=== PATIENT | male | born 1945 | race Caucasian/White ===

== ENCOUNTER → 2018-07-22 | Outpatient (CLI) | payer MEDICARE, OTHER | END | disposition home or self-care (01) | LOC: LAB SHORT 09:32 → LAB 09:32 | DX: N39.0 Urinary tract infection, site not specified (principal) | CPT/HCPCS: 87077; 87086; 87186 ==

== ENCOUNTER → 2018-11-16 | Outpatient (CLI) | payer MEDICARE, OTHER ==
[2018-11-16 07:42] LABS: Color, Urine Yellow (P-Yellow)
[2018-11-16 07:43] LABS: Appearance, Urine Hazy (Clear); Bilirubin, Urine 1+ (Neg); Blood, Urine 2+ (Neg); Glucose Qualitative, Urine Neg (Normal); Ketones, Urine Neg (Neg); Leukocyte Esterase, Urine 2+ (Neg); Nitrite, Urine Neg (Neg); Protein, Urine Neg (Neg); Urobilinogen, Urine NORM (Normal)
[2018-11-16 07:46] LABS: Bacteria Not Seen /hpf; Red Blood Cells, Urine 50-100 /hpf (0-2); Squamous Epithelial Cells Few /hpf (Few)
== END | disposition home or self-care (01) ==
LOC: LAB EV 07:13
PROVIDERS: Internal Medicine
DX: E11.9 Type 2 diabetes mellitus without complications (principal); R30.0 Dysuria
CPT/HCPCS: 81001; 82043; 87077; 87086; 87186

== ENCOUNTER 2020-08-28 09:47 | Day surgery (SDC) | payer MEDICARE, OTHER ==
[~2020-08-28] VITALS: Ht 188 cm; Wt 139.2 kg
[~2020-08-28 09:47] MED LIST: ASPI81CH; ATEN25; CYCL10 PO; ENAL2.5; EUTHYROX50 MCG; GABA300 PO; GLUCOPHAGE1000 MG PO; HYDCHL25; HYDR1TAB94 PO; OMEP20ER; Prednisone20 MG PO; TAMS.4ER PO
== END 2020-08-28 10:52 | disposition home or self-care (01) ==
LOC: ORSCSDS 09:47
PROVIDERS: Anesthesiology
PROC: 3E0R33Z Introduction of Anti-inflammatory into Spinal Canal, Percutaneous Approach (ICD-10-PCS; principal; 2020-08-28 11:00)
DX: M51.16 Intervertebral disc disorders with radiculopathy, lumbar region (principal); M54.5 Low back pain; I10 Essential (primary) hypertension; E11.9 Type 2 diabetes mellitus without complications; K21.9 Gastro-esophageal reflux disease without esophagitis; E03.9 Hypothyroidism, unspecified; E78.00 Pure hypercholesterolemia, unspecified; E66.9 Obesity, unspecified; Z68.39 Body mass index [BMI] 39.0-39.9, adult; Z79.899 Other long term (current) drug therapy
CPT/HCPCS: 82947; J1040

== ENCOUNTER 2020-09-12 23:06 | Inpatient (IN) | payer MEDICARE, OTHER ==
[~2020-09-12] VITALS: Ht 188 cm; Wt 220.8 kg
[~2020-09-12 23:06] MED LIST changes: +AMAN100 PO; -ASPI81CH; +ATENOLOL25 MG PO; +ATORVASTATIN CA20 MG PO; +Aspirin EC81 MG PO; +CARBIDOPA-LEVO1 EA15 PO; +Enalapril Malea20 MG PO; +FINA5 PO; +METFORMIN HCL500 M3 PO; +NEURONTIN300 MG PO; +SYNTHROID150 MC1 PO
[2020-09-12 23:57] LABS: BASOPHILS ABSOLUTE AUTO 0.01 K/mm3 (0.00-0.23); BASOPHILS PERCENT AUTO 0 % (0-2); EOSINOPHILS ABSOLUTE AUTO 0.01 K/mm3 (0.00-0.68); EOSINOPHILS PERCENT AUTO 0 % (0-6); Hematocrit 39.3 % (37.0-53.0); Hemoglobin 12.8 g/dL (13.5-17.5); IMMATURE GRAN ABSOLUTE AUTO 0.02 K/mm3 (0.00-0.10); IMMATURE GRAN PERCENT AUTO 0 % (0-1); LYMPHOCYTES ABSOLUTE AUTO 0.74 K/mm3 (0.84-5.20); LYMPHOCYTES PERCENT AUTO 16 % (21-46); MONOCYTES ABSOLUTE AUTO 0.41 K/mm3 (0.16-1.47); MONOCYTES PERCENT AUTO 9 % (4-13); Mean Corpuscular HGB 29.6 pg (26.0-34.0); Mean Corpuscular HGB Conc 32.6 g/dL (31.5-36.5); Mean Corpuscular Volume 91 fL (80-100); Mean Platelet Volume 11.8 fL (9.1-12.4); NEUTROPHILS ABSOLUTE AUTO 3.53 K/mm3 (1.96-9.15); NEUTROPHILS PERCENT AUTO 75 % (41-73); Platelet Count 115 K/mm3 (150-400); RDW Coefficient Variation 14.5 % (11.7-14.2); RDW Standard Deviation 48.8 fL (35.1-46.3); Red Blood Cell Count 4.33 M/mm3 (4.30-5.90); White Blood Cell Count 4.72 K/mm3 (4.00-11.30)
[2020-09-13 00:12] LABS: Albumin, Blood 3.1 g/dL (3.4-5.0); Albumin/Globulin Ratio 0.9 (0.8-1.8); Bilirubin, Total 0.6 mg/dL (0.1-1.0); Calcium, Blood 7.8 mg/dL (8.5-10.1); Creatinine, Blood 2.79 mg/dL (0.60-1.20); Globulin, Blood 3.3 g/dL (2.2-4.0); Potassium, Blood 4.5 mmol/L (3.5-5.5); Total Protein, Blood 6.4 g/dL (6.4-8.2); Troponin I 0.045 ng/mL (0.000-0.040)
[2020-09-13 00:14] LABS: International Normalized Ratio 1.02; Prothrombin Time Results 10.9 Sec (9.7-11.5)
[2020-09-13 02:11] LABS: Source, Urine Catheter
[2020-09-13 02:18] LABS: Blood, Urine 4+ (Neg); Glucose Qualitative, Urine Neg (Neg); Ketones, Urine Neg (Neg); Leukocyte Esterase, Urine 1+ (Neg); Nitrite, Urine Neg (Neg); Protein, Urine 2+ (Neg); Urobilinogen, Urine 1+ (Normal)
[2020-09-13 02:23] LABS: Appearance, Urine Clear (Clear); Bilirubin, Urine 1+ (Neg); Color, Urine Amber (P-Yellow)
[2020-09-13 02:31] LABS: Bacteria Mod /hpf; Red Blood Cells, Urine Rare /hpf (0-2); Squamous Epithelial Cells Mod /hpf (Few); White Blood Cells, Urine Rare /hpf (0-5)
--- NOTE | 2020-09-13 05:16 | NUR ---
0410 ADMIT PATIENT FROM ER VIA GURNEY, MAX 2 PERSON PIVOT FROM GURNEY TO BED. DENIES PAIN OR DICOMFORT AT THIS TIME, SEE ADMISSION ASSESSMENT FOR FULL ASSESSMENT. CALL LIGHT TEACHING DONE, CALL FIRST TEACHING, BED IN LOW POSITION WITH ALARM ON.
[2020-09-13 06:23] LABS: BASOPHILS ABSOLUTE AUTO 0.01 K/mm3 (0.00-0.23); BASOPHILS PERCENT AUTO 0 % (0-2); EOSINOPHILS ABSOLUTE AUTO 0.02 K/mm3 (0.00-0.68); EOSINOPHILS PERCENT AUTO 0 % (0-6); Hematocrit 38.6 % (37.0-53.0); Hemoglobin 12.9 g/dL (13.5-17.5); IMMATURE GRAN ABSOLUTE AUTO 0.02 K/mm3 (0.00-0.10); IMMATURE GRAN PERCENT AUTO 0 % (0-1); LYMPHOCYTES ABSOLUTE AUTO 1.07 K/mm3 (0.84-5.20); LYMPHOCYTES PERCENT AUTO 23 % (21-46); MONOCYTES ABSOLUTE AUTO 0.59 K/mm3 (0.16-1.47); MONOCYTES PERCENT AUTO 12 % (4-13); Mean Corpuscular HGB 29.6 pg (26.0-34.0); Mean Corpuscular HGB Conc 33.4 g/dL (31.5-36.5); Mean Corpuscular Volume 89 fL (80-100); Mean Platelet Volume 11.8 fL (9.1-12.4); NEUTROPHILS ABSOLUTE AUTO 3.05 K/mm3 (1.96-9.15); NEUTROPHILS PERCENT AUTO 64 % (41-73); Platelet Count 85 K/mm3 (150-400); RDW Coefficient Variation 14.6 % (11.7-14.2); Red Blood Cell Count 4.36 M/mm3 (4.30-5.90); White Blood Cell Count 4.76 K/mm3 (4.00-11.30)
--- NOTE | 2020-09-13 08:00 | NUR ---
PT LAYING IN BED, A/OX3, A BIT SLOW TO RESPOND, PLEASANT AND COOPERATIVE WITH CARE, FOLLOWS COMMANDS WELL, LUNGS ARE CLEAR IN UPPER SAMPSON, EXP WHEEZE IN BASES, RESP EVEN AND UNLABORED, IS CURRENTLY ON 2 LITERS O2 VIA N/C, NO COUGH NOTED, HRR, TELE IN PLACE RUNNING SR PER MONITOR, SEE STRIP, NO EDEMA NOTED, PPP+1, CAP REFILL <3SEC, VS STABLE, AFEBRILE, IV SITES ARE CLEAR AND PATENT, BTX4, ABD FLAT SOFT NONTENDER, INCONT OF URINE/STOOL, ATTENDS IN PLACE, MAEW, STIFF, SKIN HAS BRUISING TO ABD, DID HAVE A FALL AT HOME, ANA MARIA, CALL LIGHT IN REACH.
[2020-09-13 10:28] LABS: Bun/Creatinine Ratio 27.5 (12.0-20.0); Calcium, Blood 7.9 mg/dL (8.5-10.1); Creatinine, Blood 2.33 mg/dL (0.60-1.20); Potassium, Blood 4.2 mmol/L (3.5-5.5)
--- NOTE | 2020-09-13 18:04 | NUR ---
pt quite pleasant quiet. 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 some redness around scrotum/watson. nystatin applied. changing regularly, heavy wetter. no c/o pain since i took over care at 1500. we talked some about his occupation. no new concerns at this time. bed in low positioin, call lite in reach, calls approp
[2020-09-14 03:52] LABS: BASOPHILS ABSOLUTE AUTO 0.01 K/mm3 (0.00-0.23); BASOPHILS PERCENT AUTO 0 % (0-2); EOSINOPHILS PERCENT AUTO 0 % (0-6); Hematocrit 36.2 % (37.0-53.0); Hemoglobin 12.2 g/dL (13.5-17.5); IMMATURE GRAN ABSOLUTE AUTO 0.02 K/mm3 (0.00-0.10); IMMATURE GRAN PERCENT AUTO 1 % (0-1); LYMPHOCYTES ABSOLUTE AUTO 0.52 K/mm3 (0.84-5.20); LYMPHOCYTES PERCENT AUTO 17 % (21-46); MONOCYTES PERCENT AUTO 10 % (4-13); Mean Corpuscular HGB Conc 33.7 g/dL (31.5-36.5); Mean Corpuscular Volume 89 fL (80-100); Mean Platelet Volume 11.2 fL (9.1-12.4); NEUTROPHILS ABSOLUTE AUTO 2.31 K/mm3 (1.96-9.15); NEUTROPHILS PERCENT AUTO 73 % (41-73); Platelet Count 101 K/mm3 (150-400); RDW Coefficient Variation 14.2 % (11.7-14.2); RDW Standard Deviation 46.4 fL (35.1-46.3); Red Blood Cell Count 4.06 M/mm3 (4.30-5.90); White Blood Cell Count 3.16 K/mm3 (4.00-11.30)
[2020-09-14 04:21] LABS: Alanine Aminotransfer (ALT/SGP 28 U/L (12-78); Albumin, Blood 2.5 g/dL (3.4-5.0); Albumin/Globulin Ratio 0.8 (0.8-1.8); Alk Phos 99 U/L (50-136); Anion Gap 5 mmol/L (6-16); Aspartate Aminotrans (AST/SGOT 138 U/L (12-37); Bilirubin, Total 0.5 mg/dL (0.1-1.0); Blood Urea Nitrogen 40 mg/dL (8-24); Bun/Creatinine Ratio 35.7 (12.0-20.0); CO2, Blood 22 mmol/L (21-32); Calcium, Blood 7.8 mg/dL (8.5-10.1); Chloride, Blood 112 mmol/L (98-108); Creatinine, Blood 1.12 mg/dL (0.60-1.20); Globulin, Blood 3.3 g/dL (2.2-4.0); Glomerular Filtration Rate >60 (60-); Glucose, Blood 173 mg/dL (70-99); Potassium, Blood 4.6 mmol/L (3.5-5.5); Sodium, Blood 139 mmol/L (136-145); Total Protein, Blood 5.8 g/dL (6.4-8.2)
--- NOTE | 2020-09-14 05:37 | NUR ---
SHIFT SUMMARY PT ALERT AND ORIENTED X 4. FORGETFUL AT TIMES. NEEDS REMINDING ON HOW TO USE CALL LIGHT. PT ABLE TO ASSIST IN Q 2 TURNS. PT INCONTINENT AT TIMES, DEPENDS IN PLACE. OXYGEN SATURATION MAINTAINED ABOVE 92% ON 2 L OF OXYGEN VIA NC. HR STABLE. BP STABLE. NO CP OR PRESURE REPORTED. WILL CONTINUE TO MONITOR UNTIL REPORT GIVEN TO NORBERTO BIGGS.
[2020-09-15] MEDS ORDERED: Enalapril Malea20 MG PO (18:32)
[2020-09-15] MEDS ORDERED: HYDCHL25 PO (18:32)
[2020-09-15] MEDS ORDERED: ATEN25 PO (18:33)
[2020-09-15] MEDS ORDERED: METF500 PO (18:33)
[2020-09-15] MEDS ORDERED: OMEP20ER PO (18:34)
== END 2020-09-14 13:33 | disposition home health service (06) | DRG 177 ==
LOC: ER 23:06 → PCU 09-13 04:15
PROVIDERS: Emergency Medicine; Internal Medicine; ADMIT Family Medicine
DX: U07.1 COVID-19 (principal); J12.9 Viral pneumonia, unspecified; N17.9 Acute kidney failure, unspecified; Z66 Do not resuscitate; Z23 Encounter for immunization; Z79.82 Long term (current) use of aspirin; Z79.84 Long term (current) use of oral hypoglycemic drugs; F17.210 Nicotine dependence, cigarettes, uncomplicated; E66.9 Obesity, unspecified; G20 Parkinson's disease; E78.5 Hyperlipidemia, unspecified; I95.9 Hypotension, unspecified; M79.2 Neuralgia and neuritis, unspecified; D69.6 Thrombocytopenia, unspecified; W18.30XA Fall on same level, unspecified, initial encounter; Y93.9 Activity, unspecified; Y92.009 Unspecified place in unspecified non-institutional (private) residence as the place of occurrence of the external cause; N40.0 Benign prostatic hyperplasia without lower urinary tract symptoms; N18.30 Chronic kidney disease, stage 3 unspecified; E11.22 Type 2 diabetes mellitus with diabetic chronic kidney disease; I12.9 Hypertensive chronic kidney disease with stage 1 through stage 4 chronic kidney disease, or unspecified chronic kidney disease; Z68.39 Body mass index [BMI] 39.0-39.9, adult
CPT/HCPCS: 36415; 71045; 76770; 80048; 80053; 81001; 82947; 83605; 84145; 84484; 85025; 85610; 85730; 87040; 87086; 93005; 93010; 94644; 96360; 97162; 97530; 99285-25; A9270-GY; G0008; J0696; J1100; J1644; J7030; Q2038

== ENCOUNTER 2020-09-15 17:29 | Inpatient (IN) | payer MEDICARE, OTHER ==
[~2020-09-15] VITALS: Ht 188 cm; Wt 117.9 kg
[2020-09-15 18:30] LABS: BASOPHILS PERCENT AUTO 0 % (0-2); EOSINOPHILS ABSOLUTE AUTO 0.01 K/mm3 (0.00-0.68); EOSINOPHILS PERCENT AUTO 0 % (0-6); Hematocrit 37.1 % (37.0-53.0); Hemoglobin 12.4 g/dL (13.5-17.5); IMMATURE GRAN ABSOLUTE AUTO 0.03 K/mm3 (0.00-0.10); IMMATURE GRAN PERCENT AUTO 1 % (0-1); LYMPHOCYTES ABSOLUTE AUTO 0.55 K/mm3 (0.84-5.20); LYMPHOCYTES PERCENT AUTO 12 % (21-46); MONOCYTES ABSOLUTE AUTO 0.21 K/mm3 (0.16-1.47); MONOCYTES PERCENT AUTO 5 % (4-13); Mean Corpuscular HGB 29.2 pg (26.0-34.0); Mean Corpuscular HGB Conc 33.4 g/dL (31.5-36.5); Mean Corpuscular Volume 88 fL (80-100); Mean Platelet Volume 11.4 fL (9.1-12.4); NEUTROPHILS PERCENT AUTO 83 % (41-73); Platelet Count 97 K/mm3 (150-400); RDW Coefficient Variation 13.8 % (11.7-14.2); RDW Standard Deviation 44.6 fL (35.1-46.3); Red Blood Cell Count 4.24 M/mm3 (4.30-5.90)
[2020-09-15] MEDS ORDERED: Enalapril Malea20 MG PO (18:32)
[2020-09-15] MEDS ORDERED: HYDCHL25 PO (18:32)
[2020-09-15] MEDS ORDERED: METF500 PO (18:33)
[2020-09-15] MEDS ORDERED: ATEN25 PO (18:33)
[2020-09-15] MEDS ORDERED: OMEP20ER PO (18:34)
[2020-09-15 18:44] LABS: Magnesium, Blood 1.8 mg/dL (1.6-2.4); Troponin I 0.043 ng/mL (0.000-0.040)
[2020-09-15 18:45] LABS: Alanine Aminotransfer (ALT/SGP 86 U/L (12-78); Albumin, Blood 2.8 g/dL (3.4-5.0); Albumin/Globulin Ratio 0.8 (0.8-1.8); Alk Phos 111 U/L (50-136); Anion Gap 5 mmol/L (6-16); Aspartate Aminotrans (AST/SGOT 155 U/L (12-37); Bilirubin, Total 0.8 mg/dL (0.1-1.0); Blood Urea Nitrogen 31 mg/dL (8-24); Bun/Creatinine Ratio 32.1 (12.0-20.0); CO2, Blood 24 mmol/L (21-32); Calcium, Blood 8.2 mg/dL (8.5-10.1); Chloride, Blood 110 mmol/L (98-108); Creatinine, Blood 0.97 mg/dL (0.60-1.20); Globulin, Blood 3.5 g/dL (2.2-4.0); Glomerular Filtration Rate >60 (60-); Glucose, Blood 131 mg/dL (70-99); Potassium, Blood 4.3 mmol/L (3.5-5.5); Sodium, Blood 139 mmol/L (136-145); Total Protein, Blood 6.3 g/dL (6.4-8.2)
--- NOTE | 2020-09-15 22:05 | NUR ---
RECEIVED REPORT FROM DIAN SIERRA. PT ARRIVED TO RM 312 VIA GURNEY. PT TRANSFERRED TO BED WITH 2PA, SHUFFLING GAIT. INCONTINENT OF URINE AT THIS TIME, CONDOM CATH PLACED, NOTED YELLOW URINE. WILL MONITOR AND PROVIDE CARE T/O SHIFT. CALL LT IN REACH.
[2020-09-16 02:11] LABS: BASOPHILS PERCENT AUTO 0 % (0-2); EOSINOPHILS PERCENT AUTO 0 % (0-6); Hematocrit 35.5 % (37.0-53.0); Hemoglobin 11.9 g/dL (13.5-17.5); IMMATURE GRAN ABSOLUTE AUTO 0.03 K/mm3 (0.00-0.10); IMMATURE GRAN PERCENT AUTO 1 % (0-1); LYMPHOCYTES ABSOLUTE AUTO 0.21 K/mm3 (0.84-5.20); LYMPHOCYTES PERCENT AUTO 5 % (21-46); MONOCYTES ABSOLUTE AUTO 0.14 K/mm3 (0.16-1.47); MONOCYTES PERCENT AUTO 4 % (4-13); Mean Corpuscular HGB 29.5 pg (26.0-34.0); Mean Corpuscular HGB Conc 33.5 g/dL (31.5-36.5); Mean Corpuscular Volume 88 fL (80-100); Mean Platelet Volume 11.1 fL (9.1-12.4); NEUTROPHILS ABSOLUTE AUTO 3.65 K/mm3 (1.96-9.15); NEUTROPHILS PERCENT AUTO 91 % (41-73); Platelet Count 107 K/mm3 (150-400); RDW Coefficient Variation 13.9 % (11.7-14.2); RDW Standard Deviation 44.7 fL (35.1-46.3); Red Blood Cell Count 4.04 M/mm3 (4.30-5.90); White Blood Cell Count 4.03 K/mm3 (4.00-11.30)
[2020-09-16 02:40] LABS: Alanine Aminotransfer (ALT/SGP 82 U/L (12-78); Albumin, Blood 2.7 g/dL (3.4-5.0); Albumin/Globulin Ratio 0.8 (0.8-1.8); Alk Phos 100 U/L (50-136); Anion Gap 4 mmol/L (6-16); Aspartate Aminotrans (AST/SGOT 129 U/L (12-37); Bilirubin, Total 0.7 mg/dL (0.1-1.0); Blood Urea Nitrogen 27 mg/dL (8-24); Bun/Creatinine Ratio 30.9 (12.0-20.0); CO2, Blood 25 mmol/L (21-32); Chloride, Blood 107 mmol/L (98-108); Creatinine, Blood 0.87 mg/dL (0.60-1.20); Globulin, Blood 3.4 g/dL (2.2-4.0); Glomerular Filtration Rate >60 (60-); Glucose, Blood 305 mg/dL (70-99); Sodium, Blood 136 mmol/L (136-145); Total Protein, Blood 6.1 g/dL (6.4-8.2)
--- NOTE | 2020-09-16 04:37 | NUR ---
SHIFT SUMMARY: ER ADMIT AT 2213. ALERT AND ORIENTED, FORGETFUL AT TIMES. ON 4L VIA NC, BASELINE RA. MEDICATED ONCE FOR CHRONIC BACK AND SHOULDER PAIN WITH GOOD RELIEF PER PT. TAKES MEDS WHOLE WITH WATER WITHOUT DIFFICULTY. ONEIDA. LUNG SOUNDS WHEEZY WITH AUDIBLE WHEEZES. INCONTINENT OF URINE AT THIS TIME. USES FWW AT BASELINE, THIS ADMIT WEAK D/T ILLNESS. RECEIVED FIRST DOSE OF REMDESIVIR AND DECADRON DURING SHIFT. WILL CONTINUE TO MONITOR AND PROVIDE CARE UNTIL SHIFT REPORT.
--- NOTE | 2020-09-16 11:15 | NUR ---
DAUGHTER WENDI [phone], STATES PATIENT HAD FREQUENT FALLS AT HOME. GIRLFRIEND UNABLE TO PROVIDE SUPPORT FOR PT, WHO DTR AND GF STATES IS DECONDITIONED FROM BASELINE. PT GF, PRAMOD, IS ALSO COVID +
--- NOTE | 2020-09-17 03:57 | NUR ---
SHIFT SUMMARY ADMITTED FOR FEVER/O2 DESATURATION. COVID POSITIVE. DNR CODE. PLAN WILL BE TO DC HOME WHEN MEDICALLY STABLE. RECENT HX OF MULTIPLE ADMIT/ER VISITS, SIGNIFICANT OTHER IS NOT WILLING TO TAKE HIM HOME TOO SOON A RESULT. HE IS ON RA AT HOME, 3 LPM O2 HERE. HX OF RECENT FALLS, DM2 CONTROLLED BY DIET. HE IS INCONTINENT, CONDOM CATH IN PLACE. SIGNIFICANT OTHER INFORMS ME THAT HE CAN BE VERY FORGETFUL. VS ARE STABLE, HE DENIED PAIN THIS SHIFT
[2020-09-17 05:02] LABS: BASOPHILS ABSOLUTE AUTO 0.01 K/mm3 (0.00-0.23); BASOPHILS PERCENT AUTO 0 % (0-2); EOSINOPHILS PERCENT AUTO 0 % (0-6); Hematocrit 37.5 % (37.0-53.0); Hemoglobin 12.5 g/dL (13.5-17.5); IMMATURE GRAN ABSOLUTE AUTO 0.06 K/mm3 (0.00-0.10); IMMATURE GRAN PERCENT AUTO 1 % (0-1); LYMPHOCYTES ABSOLUTE AUTO 0.52 K/mm3 (0.84-5.20); LYMPHOCYTES PERCENT AUTO 9 % (21-46); MONOCYTES ABSOLUTE AUTO 0.44 K/mm3 (0.16-1.47); MONOCYTES PERCENT AUTO 8 % (4-13); Mean Corpuscular HGB 29.3 pg (26.0-34.0); Mean Corpuscular HGB Conc 33.3 g/dL (31.5-36.5); Mean Corpuscular Volume 88 fL (80-100); Mean Platelet Volume 10.8 fL (9.1-12.4); NEUTROPHILS ABSOLUTE AUTO 4.72 K/mm3 (1.96-9.15); NEUTROPHILS PERCENT AUTO 82 % (41-73); Platelet Count 103 K/mm3 (150-400); RDW Coefficient Variation 13.3 % (11.7-14.2); Red Blood Cell Count 4.26 M/mm3 (4.30-5.90); White Blood Cell Count 5.75 K/mm3 (4.00-11.30)
--- NOTE | 2020-09-17 17:32 | NUR ---
SUMMARY PT SITTING UP IN THE RECLINER AT THE BEDSIDE WATCHING TV, PT HAS BEEN PLEASANT AND COOPERATIVE WITH CARE T/O THE DAY, VERY WHEEZY AND SOB AT THE START OF THE SHIFT, WHEEZING HAS SLOWLY IMPROVED T/O THE DAY, PT WAS A 2 P ASSIST UP TO THE RECLINER, PT WAITING TO WATCH A FOOTBALL GAME, PT HAS HAD SEVERAL PHONE CALLS FROM FRIENDS AND FAMILY, PT REMAINS ON 2-3 L OXYGEN, VSS, WILL CONT TO MONITOR
--- NOTE | 2020-09-18 05:40 | NUR ---
PT weaned to 2 l nc oxygen from 3 l . 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 HAs Parkinsons disease & hx of multiple falls at home. Up to chair for several hours & up again to chair this AM for short time. PT recieved IV tx for covid 19. Had repeat chest xray yesterday which showed worsening image. Audible crackles lung bases. PT has a condom cath which did not stay on encouraged urinal use & offered assist but PT was incontient on floor x 1 & used urinal in bed x 1 & spilled. CO gen pain when asked norco 5/325 mg tab x 1 helpful to decrease.
--- NOTE | 2020-09-18 17:37 | NUR ---
SHIFT SUMMARY PATIENT ALERT TO SELF, LOCATION, AND SITUATION THIS SHIFT. PATIENT IS COOPERATIVE WITH CARE. PATIENT ON 2L O2 THIS SHIFT, WHICH IS HIS HOME USAGE. PATIENT IS A 2 PERSON TRANSFER TO THE BEDSIDE CHAIR, WHERE THE PATIENT HAS BEEN SITTING SINCE BREAKFAST. PATIENT STANDS FOR ATTENDS CHANGES DUE TO INCONTENENCE. PATIENT USES FWW AND REQUIRES SOME GUIDANCE AND MINOR BALANCE ASSISTANCE. PATIENT STATES THAT HE DOESN'T KNOW WHAT ALL HIS MEDICATIONS ARE FOR, EDUCATION PROVIDED. PATIENT IS CURRENTLY SITTING UP IN THE CHAIR WATCHING TELEVISION.
[2020-09-19 05:45] LABS: Hematocrit 40.5 % (37.0-53.0); Hemoglobin 13.2 g/dL (13.5-17.5); Mean Corpuscular HGB 28.8 pg (26.0-34.0); Mean Corpuscular HGB Conc 32.6 g/dL (31.5-36.5); Mean Corpuscular Volume 88 fL (80-100); Mean Platelet Volume 10.6 fL (9.1-12.4); Platelet Count 138 K/mm3 (150-400); RDW Coefficient Variation 13.4 % (11.7-14.2); RDW Standard Deviation 43.6 fL (35.1-46.3); Red Blood Cell Count 4.59 M/mm3 (4.30-5.90); White Blood Cell Count 5.08 K/mm3 (4.00-11.30)
[2020-09-19 06:05] LABS: Alanine Aminotransfer (ALT/SGP 37 U/L (12-78); Albumin, Blood 2.6 g/dL (3.4-5.0); Albumin/Globulin Ratio 0.7 (0.8-1.8); Alk Phos 104 U/L (50-136); Anion Gap 3 mmol/L (6-16); Aspartate Aminotrans (AST/SGOT 48 U/L (12-37); Bilirubin, Total 0.9 mg/dL (0.1-1.0); Blood Urea Nitrogen 21 mg/dL (8-24); Bun/Creatinine Ratio 22.5 (12.0-20.0); CO2, Blood 31 mmol/L (21-32); Calcium, Blood 8.4 mg/dL (8.5-10.1); Chloride, Blood 105 mmol/L (98-108); Creatinine, Blood 0.93 mg/dL (0.60-1.20); Globulin, Blood 3.6 g/dL (2.2-4.0); Glomerular Filtration Rate >60 (60-); Glucose, Blood 105 mg/dL (70-99); Potassium, Blood 4.2 mmol/L (3.5-5.5); Sodium, Blood 139 mmol/L (136-145); Total Protein, Blood 6.2 g/dL (6.4-8.2)
--- NOTE | 2020-09-19 06:19 | NUR ---
SHIFT SUMMARY PATIENT ALERT AND ORIENTED. LUNG SOUNDS STILL HAVE EXPIRATORY WHEEZES, BUT PATIENT HAS NOW BEEN TITRATED OFF OF OXYGEN AND IS SATING AT 94% ON ROOM AIR. PATIENT HAD NO COMPLAINTS OF PAIN AND HAD MINIMAL SHORTNESS OF BREATH. IV PATENT AND FLUSHED. BED IN LOWEST POSITION WITH WHEELS LOCKED AND ALARM ON. CALL LIGHT WITHIN REACH. REPORT GIVEN TO ONCOMING RN.
--- NOTE | 2020-09-19 17:27 | NUR ---
SHIFT SUMMARY PATIENT ALERT AND ORIENTED THROUGHOUT THIS SHIFT. PATIENT IS OCCASIONALLY FORGETFUL. PATIENT HAS BEEN SITTING UP IN THE BEDSIDE CHAIR THROUGHOUT THIS SHIFT. PATIENT WORKED WITH PT/OT THIS SHIFT. PATIENT SHOWERED WITH THE ASSISTANCE OF THE EMT THIS SHIFT. PATIENT TOOK A NAP THROUGH MUCH OF THE AFTERNOON. PATIENT CURRENTLY SITTING IN THE CHAIR EATING DINNER.
--- NOTE | 2020-09-20 05:35 | NUR ---
SHIFT SUMMARY PATIENT ALERT AND ORIENTED. HAD NO COMPLAINTS OF PAIN OR SHORTNESS OF BREATH. PATIENT'S O2 SATS WERE STRUGGLING TO STAY AT 90 THIS MORNING, SO PATIENT WAS PLACED BACK ON 1 LITER O2 VIA NASAL CANULA AND HIS SATS INCREASED TO 93. IV PATENT AND FLUSHED. BED IN LOWEST POSITION WITH WHEELS LOCKED AND ALARM ON. CALL LIGHT WITHIN REACH. REPORT GIVEN TO ONCOMING RN.
--- NOTE | 2020-09-20 17:45 | NUR ---
SHIFT SUMMARY PATIENT ALERT AND ORIENTED THIS SHIFT. PATIENT COOPERATIVE WITH CARE. PATIENT HAS PREFERED TO SIT UP IN THE BEDSIDE CHAIR THROUGHOUT THIS SHIFT. PATIENT WORKED WITH PT THIS AM. PATIENT REMAINS WEAK AND IS A HEAVY 1-2 PERSON ASSIST FOR STANDING AND TRANSFERS. PATIENT HAS BEEN INCONTENENT OF URINE MULTIPLE TIMES THIS SHIFT. PATIENT SLEPT SITTING UP IN THE CHAIR MUCH OF THE AFTERNOON. PATIENT CURRENTLY EATING DINNER.
--- NOTE | 2020-09-21 06:05 | NUR ---
SHIFT SUMMARY PATIENT ALERT AND ORIENTED. HAD NO COMPLAINTS OF SHORTNESS OF BREATH, WAS HAVING MUSCLE ACHES TOWARDS THE END OF THE NIGHT. PATIENT REMAINED ON ROOM AIR OVERNIGHT AND O2 SATS HELD STABLE AT 92%. IV PATENT AND FLUSHED. BED IN LOWEST POSITION WITH WHEELS LOCKED. CALL LIGHT WITHIN REACH. REPORT GIVEN TO ONCOMING RN.
--- NOTE | 2020-09-21 18:08 | NUR ---
SHIFT SUMMARY: NO ACUE CHANGES/EVENTS TO REPORT THIS SHIFT. PT A&O; CALM AND COOPERATIVE WITH CARE. NO C/O PAIN/NAUSEA. PATIENT REMAINS MEDICALLY STABLE FOR D/C; RECOMMENDING SNF; PT IS COVID POSITIVE; SNF UNABLE TO ACCEPT PATIENT AT THIS TIME. WCTM.
--- NOTE | 2020-09-22 05:48 | NUR ---
SHIFT SUMMARY NO ACUTE CHANGES THIS SHIFT. AOX4. SLOW TO RESPOND TO QUESTIONS. FOLLOWS DIRECTIONS. HX PARKINSONS. VSS. DENIES DYSPNEA @REST. E/U RESPIRATIONS. SPO2 >90% ON RA. LUNGS SOUND DIMINISHED T/O. CBG 201 @HS. PT TRANSFERS c 2 ASSIST, GAIT BELT & FWW. HAS UNSTEADY, STIFF, SHUFFLING GAIT. INCONT/CONTINENT OF URINE. CALL LIGHT IN REACH & PT ABLE TO MAKE NEEDS KNOWN.
--- NOTE | 2020-09-22 10:05 | NUR ---
AM ASSESSMENT PT UP IN RECLINER. HE IS A/O X2, FORGETFUL, APPEARS FATIGUED. APPEARS SOMEWHAT SOB, R/R APPROX 24-28, BIOX 88-90% RA, PLACED ON 2L N/C BIOX IMPROVE TO 93-94% BLOOD SUGAR LOW @ 55, OJ & BF PROVIDED HOWEVER PT STATE NO APPETITE, DRANK OJ TOOK AM MEDS. BLOOD SUGAR RECHECK 58, DR SAMUEL NOTIFIED ORDER D50 25ML, BLOOD SUGAR UP @ 209. LUNGS ARE DECREASED w FAINT WHEEZE, INTERMITTANT COARSE FISH CULTURIST COUGH. EXTREMITIES COOL, WARM BLANKETS PROVIDED.
[2020-09-22 14:36] LABS: BASOPHILS ABSOLUTE AUTO 0.02 K/mm3 (0.00-0.23); BASOPHILS PERCENT AUTO 0 % (0-2); EOSINOPHILS ABSOLUTE AUTO 0.04 K/mm3 (0.00-0.68); EOSINOPHILS PERCENT AUTO 1 % (0-6); Hematocrit 37.4 % (37.0-53.0); Hemoglobin 12.6 g/dL (13.5-17.5); IMMATURE GRAN ABSOLUTE AUTO 0.19 K/mm3 (0.00-0.10); IMMATURE GRAN PERCENT AUTO 3 % (0-1); LYMPHOCYTES ABSOLUTE AUTO 0.32 K/mm3 (0.84-5.20); LYMPHOCYTES PERCENT AUTO 4 % (21-46); MONOCYTES ABSOLUTE AUTO 0.32 K/mm3 (0.16-1.47); MONOCYTES PERCENT AUTO 4 % (4-13); Mean Corpuscular HGB 29.3 pg (26.0-34.0); Mean Corpuscular HGB Conc 33.7 g/dL (31.5-36.5); Mean Corpuscular Volume 87 fL (80-100); Mean Platelet Volume 10.2 fL (9.1-12.4); NEUTROPHILS ABSOLUTE AUTO 6.59 K/mm3 (1.96-9.15); NEUTROPHILS PERCENT AUTO 88 % (41-73); Platelet Count 177 K/mm3 (150-400); RDW Coefficient Variation 13.4 % (11.7-14.2); RDW Standard Deviation 42.6 fL (35.1-46.3); White Blood Cell Count 7.48 K/mm3 (4.00-11.30)
[2020-09-22 15:07] LABS: Anion Gap 8 mmol/L (6-16); Blood Urea Nitrogen 23 mg/dL (8-24); Bun/Creatinine Ratio 24.1 (12.0-20.0); CO2, Blood 23 mmol/L (21-32); Calcium, Blood 8.2 mg/dL (8.5-10.1); Chloride, Blood 101 mmol/L (98-108); Creatinine, Blood 0.96 mg/dL (0.60-1.20); Glomerular Filtration Rate >60 (60-); Glucose, Blood 286 mg/dL (70-99); Potassium, Blood 4.5 mmol/L (3.5-5.5); Sodium, Blood 132 mmol/L (136-145)
--- NOTE | 2020-09-22 16:29 | NUR ---
SUMMARY THIS AM PT HAD MALAISE, LOW BLOOD SUGAR, LOW GRADE TEMP 100.3, FLUSHED, BACK RED/WARM, EXTREMITIES COOL. HE WAS SHORT OF BREATH w R/R APPROX 28, MOUTH BREATHING, BIOX 88-90% RA, PLACED ON O2 @ 2L. HE STATE NO APPETITE, DR SAMUEL ORDER GLUCERNA WHICH PT HAS TOLERATED. WE GAVE 25ML D50 TO GET BLOOD SUGAR UP. SYMPTOMS HAVE IMPROVED DAY PROGRESSED. VSS/AFEBRILE @ THIS TIME. MENTATION HAS IMPROVED. HE CONTINUES WEAK/FATIGUED HOWEVER BETTER THAN THIS AM. HE PARTICIPATED w PHYTHER, WAS ABLE TO AMBULATE SHORT DISTANCE w ASSIST/FWW, CUEING. HAS BEEN UP IN RECLINER MUCH OF DAY. NO BM X MULT DAYS, SCHEDULED BOWEL MEDS GIVEN, PT STATE THIS IS NOT UNUSUAL FOR HIM & DOES NOT FEEL CONSTIPATED, DENIES NEED FOR LAXATIVE. DR SAMUEL STATE OPTIMAL PLAN FOR HIM WOULD BE SNF WHEN APPROP, POSSIBLY HOME w H/H & CAREGIVERS.
--- NOTE | 2020-09-23 05:49 | NUR ---
SHIFT SUMMARY NO ACUTE CHANGES THIS SHIFT. AOX3, FORGETFUL OF MONTH BUT ABLE TO STATE YR CORRECTLY. SLOW TO RESPOND. FOLLOWS DIRECTIONS. VSS, AFEBRILE. DENIES PAIN, N/V, DYSPNEA. SPO2 >90% ON RA T/O NIGHT. LUNGS SOUND DIM c EXP WHEEZES. CBG @HS WAS 221. 2 ASSIST c GAIT BELT & FWW c TRANSFERS FOR WEAK, STIFF GAIT. CALL LIGHT IN REACH & PT ABLE TO MAKE NEEDS KNOWN. WCTM.
--- NOTE | 2020-09-23 13:43 | NUR ---
Palliative Care Case Conference Note Due to department's COVID-19 visiting restrictions this RN did not visit with Pt. Spoke with Pt's bedside RN Dominic and discussed case. Dominic reports Pt has improved from yesterday. Appetite still decreased. Reviewed chart including MD notes, CM notes, PT notes, and Labs. Called and spoke with Pt's spouse Kasandra. Provided update and engaged in therapeutic listening as Kasandra reports having difficulty with caring for Pt in current functional status. Listened as Kasandra reports not wanting Pt to go to SNF and inability to afford 24 hour caregiving. Continued therapeutic listening and answered questions. Provided gentle education on disease process including trajectory of Parkinson's Disease. Educated on the importance of planning for the future as disease process takes its coarse including the possible need of placing Pt into a higher level of care at some point. Kasandra reports Pt would not want to go to a higher level of care and she plans to keep him at home. Listened as Kasandra reports Pt's PCP started him on a different Parkinson's medication and stopped his original medication. Kasandra stated the new medication was helping Pt with his functional status. Kasandra reports Pt was started on Sinemet three times a day and his symmetrel was discontinued. Kasandra requests to speak with Anderson in regards to D/C plan. Kasandra expresses appreciation of call and reports no other concerns at this time. Called and spoke with Anderson Huerta, discussed case, and relayed Juan Alberto request for a phone conversation. Called and spoke with Dr Cochran. Relayed spouse's concerns regarding medications. Palliative Care will remain available.
--- NOTE | 2020-09-23 16:54 | NUR ---
SUMMARY PT HAS BEEN A/O X3, SOMEWHAT FORGETFUL R/T DATE HOWEVER RERIENTS EASILY. MENTATION MUCH IMPROVED FROM PREVIOUS MORNING. HX PARKINSONS HOWEVER TODAY MINIMAL BUE TREMOR. HIS OVERALL STRENGTH HAS IMPROVED FROM PREVIOUS DAY. HE WAS UP THIS AFTERNOON w PHYTHER, AMB IN ROOM w FWW, THERAPY REPORT IMPROVED GAIT & STAMINA. PLEASANT AFFECT TODAY. HE STATE NO SOB @ REST, NO COUGH. LUNGS DECREASED w FAINT EXP WHEEZE, BIOX 94% RA. APPETITE HAS IMPROVED SOMEWHAT, ALSO TAKING GLUCERNA. DR JULES ESPINAL, STATE POSSIBLE D/C TOMORROW, HOME w H/H & CAREGIVERS. VSS
[2020-09-24 06:00] LABS: Hematocrit 36.3 % (37.0-53.0); Hemoglobin 12.1 g/dL (13.5-17.5); Mean Corpuscular HGB 29.2 pg (26.0-34.0); Mean Corpuscular HGB Conc 33.3 g/dL (31.5-36.5); Mean Corpuscular Volume 88 fL (80-100); Mean Platelet Volume 10.3 fL (9.1-12.4); Platelet Count 200 K/mm3 (150-400); RDW Coefficient Variation 13.3 % (11.7-14.2); RDW Standard Deviation 42.6 fL (35.1-46.3); Red Blood Cell Count 4.14 M/mm3 (4.30-5.90); White Blood Cell Count 6.06 K/mm3 (4.00-11.30)
[2020-09-24 06:19] LABS: Albumin, Blood 2.2 g/dL (3.4-5.0); Anion Gap 4 mmol/L (6-16); Blood Urea Nitrogen 26 mg/dL (8-24); Bun/Creatinine Ratio 33.2 (12.0-20.0); CO2, Blood 27 mmol/L (21-32); Calcium, Blood 8.4 mg/dL (8.5-10.1); Chloride, Blood 106 mmol/L (98-108); Creatinine, Blood 0.78 mg/dL (0.60-1.20); Glomerular Filtration Rate >60 (60-); Glucose, Blood 166 mg/dL (70-99); Phosphorus, Blood 3.2 mg/dL (2.5-4.9); Potassium, Blood 4.2 mmol/L (3.5-5.5); Sodium, Blood 137 mmol/L (136-145)
--- NOTE | 2020-09-24 06:35 | NUR ---
SHIFT SUMMARY PT IS A 75 Y/O MALE, ADMITTED FOR COVID19. HE IS A&O X 3, JAMUL, 1PA TO THE B[facility]. NO C/O ACUTE PAIN, NAUSEA OR SOB. VITAL SIGNS STABLE. O2 SATS REMAIN > 90% ON RA. PT SLEPT WELL THROUGH THE NIGHT. NO ACUTE CHANGES IN PT CONDITION NOTED. WILL CONTINUE TO MONITOR AND TREAT PER EMAR UNTIL HAND OFF TO DAY SHIFT RN.
--- NOTE | 2020-09-24 11:00 | NUR ---
PATIENT SIGNED MEDICARE NOTICE.
--- NOTE | 2020-09-24 15:11 | NUR ---
PATIENT DISCHARGED TO HOME WITH Surya SUBRAMANIAN. IV SALINE LOCK REMOVED WITHOUT INCIDENT. PT DRESSED IN DISPOSBLE SCRUBS HIS OWN CLOTHING WAS SOILED. VERBALIZED UNDERSTANDING OF D/C INSTRUCTIONS AND FOLLOW UP APPOITNMENT DATE & TIME. LEFT UNIT VIA W/C AT 1507.
--- NOTE | 2020-09-24 16:37 | NUR ---
Spiritual care note: Mr. Santiago reports to be happy. Going home soon. No concerns presented. Expressed gratitude for care. Non-worship. Prayer declined.
== END 2020-09-24 15:07 | disposition home health service (06) | DRG 177 ==
LOC: ER 17:29 → MEDS 17:30
PROVIDERS: Emergency Medicine; Family Medicine; Internal Medicine; ADMIT Internal Medicine
PROC: XW033E5 Introduction of Remdesivir Anti-infective into Peripheral Vein, Percutaneous Approach, New Technology Group 5 (ICD-10-PCS; principal; 2020-09-16)
PROC: 3E0333Z Introduction of Anti-inflammatory into Peripheral Vein, Percutaneous Approach (ICD-10-PCS; 2020-09-16)
DX: U07.1 COVID-19 (principal); J12.89 Other viral pneumonia; J96.01 Acute respiratory failure with hypoxia; E87.1 Hypo-osmolality and hyponatremia; G93.40 Encephalopathy, unspecified; D69.6 Thrombocytopenia, unspecified; E03.9 Hypothyroidism, unspecified; E78.5 Hyperlipidemia, unspecified; F17.210 Nicotine dependence, cigarettes, uncomplicated; G20 Parkinson's disease; I10 Essential (primary) hypertension; K21.9 Gastro-esophageal reflux disease without esophagitis; K59.09 Other constipation; N40.0 Benign prostatic hyperplasia without lower urinary tract symptoms; W19.XXXA Unspecified fall, initial encounter; E11.65 Type 2 diabetes mellitus with hyperglycemia; T38.0X5A Adverse effect of glucocorticoids and synthetic analogues, initial encounter; Z66 Do not resuscitate
CPT/HCPCS: 36415; 71045; 80048; 80053; 80069; 82947; 83735; 83880; 84145; 84443; 84484; 85025; 85027; 93005; 93010; 94640; 94760; 94761; 96372; 96374; 96375; 97110; 97116; 97161; 97166; 97530; 97535; 99285-25; A9270-GY; C9113; G0378; J1100; J1650

== ENCOUNTER 2021-01-02 15:31 | Emergency (ER) | payer MEDICARE, OTHER ==
[~2021-01-02] VITALS: Ht 188 cm; Wt 139.2 kg
[~2021-01-02 15:31] MED LIST changes: +ATEN25 PO; +HYDCHL25 PO; +METF500 PO; +OMEP20ER PO
[2021-01-02 17:47] LABS: BASOPHILS ABSOLUTE AUTO 0.04 K/mm3 (0.00-0.23); BASOPHILS PERCENT AUTO 1 % (0-2); EOSINOPHILS ABSOLUTE AUTO 0.06 K/mm3 (0.00-0.68); EOSINOPHILS PERCENT AUTO 1 % (0-6); Hematocrit 37.9 % (37.0-53.0); Hemoglobin 12.8 g/dL (13.5-17.5); IMMATURE GRAN ABSOLUTE AUTO 0.03 K/mm3 (0.00-0.10); IMMATURE GRAN PERCENT AUTO 1 % (0-1); LYMPHOCYTES ABSOLUTE AUTO 0.89 K/mm3 (0.84-5.20); LYMPHOCYTES PERCENT AUTO 15 % (21-46); MONOCYTES ABSOLUTE AUTO 0.52 K/mm3 (0.16-1.47); MONOCYTES PERCENT AUTO 9 % (4-13); Mean Corpuscular HGB 29.8 pg (26.0-34.0); Mean Corpuscular HGB Conc 33.8 g/dL (31.5-36.5); Mean Corpuscular Volume 88 fL (80-100); Mean Platelet Volume 10.8 fL (9.1-12.4); NEUTROPHILS ABSOLUTE AUTO 4.24 K/mm3 (1.96-9.15); NEUTROPHILS PERCENT AUTO 73 % (41-73); Platelet Count 119 K/mm3 (150-400); RDW Coefficient Variation 13.2 % (11.7-14.2); RDW Standard Deviation 42.3 fL (35.1-46.3); White Blood Cell Count 5.78 K/mm3 (4.00-11.30)
[2021-01-02 18:04] LABS: Alanine Aminotransfer (ALT/SGP 23 U/L (12-78); Albumin, Blood 3.2 g/dL (3.4-5.0); Alk Phos 111 U/L (50-136); Anion Gap 7 mmol/L (6-16); Aspartate Aminotrans (AST/SGOT 16 U/L (12-37); Bilirubin, Total 0.8 mg/dL (0.1-1.0); Blood Urea Nitrogen 12 mg/dL (8-24); Bun/Creatinine Ratio 14.8 (12.0-20.0); CO2, Blood 24 mmol/L (21-32); Calcium, Blood 8.1 mg/dL (8.5-10.1); Chloride, Blood 108 mmol/L (98-108); Creatinine, Blood 0.81 mg/dL (0.60-1.20); Globulin, Blood 3.2 g/dL (2.2-4.0); Glomerular Filtration Rate >60 (60-); Glucose, Blood 149 mg/dL (70-99); Potassium, Blood 3.7 mmol/L (3.5-5.5); Sodium, Blood 139 mmol/L (136-145); Total Protein, Blood 6.4 g/dL (6.4-8.2)
[2021-01-02 18:59] LABS: Source, Urine Catheter
[2021-01-02 19:04] LABS: Appearance, Urine Clear (Clear); Bilirubin, Urine Neg (Neg); Blood, Urine 1+ (Neg); Color, Urine Yellow (P-Yellow); Glucose Qualitative, Urine Neg (Neg); Ketones, Urine Neg (Neg); Leukocyte Esterase, Urine 1+ (Neg); Nitrite, Urine Neg (Neg); Protein, Urine Neg (Neg); Urobilinogen, Urine NORM (Normal); pH, Urine 6.5 (5.0-8.0)
[2021-01-02 19:12] LABS: Bacteria Few /hpf; Red Blood Cells, Urine 0-2 /hpf (0-2); Squamous Epithelial Cells Rare /hpf (Few); White Blood Cells, Urine 0-2 /hpf (0-5)
[2021-01-02 21:03] LABS: Influenza A, PCR NEGATIVE (NEGATIVE); Influenza B, PCR NEGATIVE (NEGATIVE); Resp Syncytial Virus, PCR NEGATIVE (NEGATIVE); SARS-Cov-2 (COVID-19) PCR, MMC NEGATIVE (NEGATIVE)
== END 2021-01-02 21:48 | disposition home or self-care (01) ==
LOC: ER 15:31
PROVIDERS: Emergency Medicine
DX: R53.1 Weakness (principal); R50.9 Fever, unspecified; T50.Z95A Adverse effect of other vaccines and biological substances, initial encounter; Z79.899 Other long term (current) drug therapy; Z88.8 Allergy status to other drugs, medicaments and biological substances
CPT/HCPCS: 0241U; 71045; 80053; 81001; 85025; 87086; 99284-25; A9270; J7030

== ENCOUNTER 2021-11-05 13:24 | Day surgery (SDC) | payer MEDICARE, OTHER ==
[~2021-11-05] VITALS: Ht 193 cm; Wt 145.2 kg
== END 2021-11-05 14:58 | disposition home or self-care (01) ==
LOC: ORSCSDS 13:24
PROVIDERS: Anesthesiology
PROC: 3E0R33Z Introduction of Anti-inflammatory into Spinal Canal, Percutaneous Approach (ICD-10-PCS; principal; 2021-11-05 14:45)
DX: M51.16 Intervertebral disc disorders with radiculopathy, lumbar region (principal); E66.01 Morbid (severe) obesity due to excess calories; Z68.41 Body mass index [BMI] 40.0-44.9, adult; E03.9 Hypothyroidism, unspecified; K21.9 Gastro-esophageal reflux disease without esophagitis; E11.9 Type 2 diabetes mellitus without complications; I10 Essential (primary) hypertension; E78.00 Pure hypercholesterolemia, unspecified; Z79.84 Long term (current) use of oral hypoglycemic drugs; Z79.899 Other long term (current) drug therapy
CPT/HCPCS: J1040

== ENCOUNTER 2021-12-25 03:59 | Observation (INO) | payer MEDICARE, OTHER ==
[~2021-12-25] VITALS: Ht 188 cm; Wt 140.1 kg
[2021-12-25 04:20] LABS: BASOPHILS ABSOLUTE AUTO 0.08 K/mm3 (0.00-0.23); BASOPHILS PERCENT AUTO 1 % (0-2); EOSINOPHILS ABSOLUTE AUTO 0.26 K/mm3 (0.00-0.68); EOSINOPHILS PERCENT AUTO 4 % (0-6); Hemoglobin 14.6 g/dL (13.5-17.5); IMMATURE GRAN ABSOLUTE AUTO 0.04 K/mm3 (0.00-0.10); IMMATURE GRAN PERCENT AUTO 1 % (0-1); LYMPHOCYTES ABSOLUTE AUTO 1.75 K/mm3 (0.84-5.20); LYMPHOCYTES PERCENT AUTO 24 % (21-46); MONOCYTES ABSOLUTE AUTO 0.45 K/mm3 (0.16-1.47); MONOCYTES PERCENT AUTO 6 % (4-13); Mean Corpuscular HGB 30.1 pg (26.0-34.0); Mean Corpuscular HGB Conc 33.2 g/dL (31.5-36.5); Mean Corpuscular Volume 91 fL (80-100); Mean Platelet Volume 12.1 fL (9.1-12.4); NEUTROPHILS ABSOLUTE AUTO 4.67 K/mm3 (1.96-9.15); NEUTROPHILS PERCENT AUTO 64 % (41-73); Platelet Count 136 K/mm3 (150-400); RDW Standard Deviation 46.4 fL (35.1-46.3); Red Blood Cell Count 4.85 M/mm3 (4.30-5.90); White Blood Cell Count 7.25 K/mm3 (4.00-11.30)
[2021-12-25 04:45] LABS: Alanine Aminotransfer (ALT/SGP 10 U/L (12-78); Albumin, Blood 3.6 g/dL (3.4-5.0); Albumin/Globulin Ratio 1.1 (0.8-1.8); Alk Phos 115 U/L (50-136); Anion Gap 4 mmol/L (6-16); Aspartate Aminotrans (AST/SGOT 14 U/L (12-37); Bilirubin, Total 0.9 mg/dL (0.1-1.0); Blood Urea Nitrogen 16 mg/dL (8-24); Bun/Creatinine Ratio 14.3 (12.0-20.0); CO2, Blood 27 mmol/L (21-32); Calcium, Blood 8.8 mg/dL (8.5-10.1); Chloride, Blood 109 mmol/L (98-108); Creatinine, Blood 1.12 mg/dL (0.60-1.20); Free Thyroxine 1.22 ng/dL (0.70-1.60); Globulin, Blood 3.2 g/dL (2.2-4.0); Glomerular Filtration Rate >60 (60-); Glucose, Blood 174 mg/dL (70-99); Magnesium, Blood 1.9 mg/dL (1.6-2.4); Potassium, Blood 3.7 mmol/L (3.5-5.5); Sodium, Blood 140 mmol/L (136-145); Total Protein, Blood 6.8 g/dL (6.4-8.2)
[2021-12-25 12:44] LABS: CPK Creatine Kinase 110 U/L (39-308)
[2021-12-25 21:13] LABS: CPK Creatine Kinase 124 U/L (39-308)
--- NOTE | 2021-12-26 03:54 | NUR ---
SHIFT SUMMARY PATIENT NPO FOR STRESS TEST TODAY. AXOX 2-3 WITH HX OF DEMENTIA. VSS/AFEBRILE. SOUVENIR ASSEMBLER REPORTED SB 53 WHEN PATIENT RESTING. DENIES CHEST PAIN, SOB, AND N/V. CBG 141. NEW PIV PLACED. COOPERATIVE WITH CARE. CALL LIGHT IN REACH. BED IN LOWEST POSITION. WILL CONTINUE TO MONITOR UNTIL DAY SHIFT NURSE ASSUMES CARE.
[2021-12-26 04:56] LABS: BASOPHILS ABSOLUTE AUTO 0.06 K/mm3 (0.00-0.23); BASOPHILS PERCENT AUTO 1 % (0-2); EOSINOPHILS ABSOLUTE AUTO 0.16 K/mm3 (0.00-0.68); EOSINOPHILS PERCENT AUTO 3 % (0-6); Hematocrit 41.6 % (37.0-53.0); Hemoglobin 14.1 g/dL (13.5-17.5); IMMATURE GRAN ABSOLUTE AUTO 0.03 K/mm3 (0.00-0.10); IMMATURE GRAN PERCENT AUTO 1 % (0-1); LYMPHOCYTES ABSOLUTE AUTO 1.27 K/mm3 (0.84-5.20); LYMPHOCYTES PERCENT AUTO 20 % (21-46); MONOCYTES ABSOLUTE AUTO 0.45 K/mm3 (0.16-1.47); MONOCYTES PERCENT AUTO 7 % (4-13); Mean Corpuscular HGB 30.1 pg (26.0-34.0); Mean Corpuscular HGB Conc 33.9 g/dL (31.5-36.5); Mean Corpuscular Volume 89 fL (80-100); Mean Platelet Volume 11.7 fL (9.1-12.4); NEUTROPHILS ABSOLUTE AUTO 4.44 K/mm3 (1.96-9.15); NEUTROPHILS PERCENT AUTO 69 % (41-73); Platelet Count 131 K/mm3 (150-400); RDW Coefficient Variation 14.1 % (11.7-14.2); RDW Standard Deviation 45.7 fL (35.1-46.3); Red Blood Cell Count 4.69 M/mm3 (4.30-5.90); White Blood Cell Count 6.41 K/mm3 (4.00-11.30)
[2021-12-26 05:10] LABS: Alanine Aminotransfer (ALT/SGP 26 U/L (12-78); Albumin, Blood 3.6 g/dL (3.4-5.0); Albumin/Globulin Ratio 1.1 (0.8-1.8); Alk Phos 112 U/L (50-136); Anion Gap 5 mmol/L (6-16); Aspartate Aminotrans (AST/SGOT 13 U/L (12-37); Bilirubin, Total 1.2 mg/dL (0.1-1.0); Blood Urea Nitrogen 17 mg/dL (8-24); Bun/Creatinine Ratio 18.3 (12.0-20.0); CO2, Blood 27 mmol/L (21-32); Calcium, Blood 8.7 mg/dL (8.5-10.1); Chloride, Blood 109 mmol/L (98-108); Creatinine, Blood 0.93 mg/dL (0.60-1.20); Globulin, Blood 3.3 g/dL (2.2-4.0); Glomerular Filtration Rate >60 (60-); Glucose, Blood 161 mg/dL (70-99); Sodium, Blood 141 mmol/L (136-145); Total Protein, Blood 6.9 g/dL (6.4-8.2)
[2021-12-26] MEDS ORDERED: NITR.4SL SL (11:58)
[2021-12-26] MEDS ORDERED: XARELTO20 MG PO (11:58)
== END 2021-12-26 12:15 | disposition home or self-care (01) ==
LOC: ER 03:59 → MEDS 04:00
PROVIDERS: Student in an Organized Health Care Education/Training Program; ADMIT Internal Medicine
DX: R07.9 Chest pain, unspecified (principal); I48.0 Paroxysmal atrial fibrillation; G20 Parkinson's disease; E11.9 Type 2 diabetes mellitus without complications; I10 Essential (primary) hypertension; E03.9 Hypothyroidism, unspecified; K21.9 Gastro-esophageal reflux disease without esophagitis; F17.210 Nicotine dependence, cigarettes, uncomplicated; E78.5 Hyperlipidemia, unspecified; N40.0 Benign prostatic hyperplasia without lower urinary tract symptoms; E66.01 Morbid (severe) obesity due to excess calories; G89.29 Other chronic pain; M54.9 Dorsalgia, unspecified; R93.1 Abnormal findings on diagnostic imaging of heart and coronary circulation; Z68.41 Body mass index [BMI] 40.0-44.9, adult; Z88.8 Allergy status to other drugs, medicaments and biological substances; Z79.82 Long term (current) use of aspirin; Z79.84 Long term (current) use of oral hypoglycemic drugs; Z66 Do not resuscitate
CPT/HCPCS: 36415; 71045; 80053; 82550; 82947; 83735; 83880; 84439; 84443; 84484; 85025; 93005; 93010; 93306; A9270; J7030

== ENCOUNTER 2022-05-11 10:19 | Emergency (ER) | payer MEDICARE, OTHER ==
[~2022-05-11] VITALS: Ht 188 cm; Wt 137.4 kg
[~2022-05-11 10:19] MED LIST changes: +NITR.4SL SL; +XARELTO20 MG PO
== END 2022-05-11 10:45 | disposition home or self-care (01) ==
LOC: ER 10:19
DX: I48.91 Unspecified atrial fibrillation (principal); E11.9 Type 2 diabetes mellitus without complications; J44.9 Chronic obstructive pulmonary disease, unspecified; G20 Parkinson's disease; F17.210 Nicotine dependence, cigarettes, uncomplicated; Z79.01 Long term (current) use of anticoagulants; Z79.82 Long term (current) use of aspirin; Z79.899 Other long term (current) drug therapy; Z79.84 Long term (current) use of oral hypoglycemic drugs; Z88.8 Allergy status to other drugs, medicaments and biological substances; Z86.73 Personal history of transient ischemic attack (TIA), and cerebral infarction without residual deficits
CPT/HCPCS: 99282

== ENCOUNTER 2023-02-24 03:54 | Observation (INO) | payer MEDICARE, OTHER ==
[~2023-02-24] VITALS: Ht 188 cm; Wt 123.0 kg
[~2023-02-24 03:54] MED LIST changes: +EUTHYROX175 MCG PO; -NEURONTIN300 MG PO; -OMEP20ER PO; +PANT20 PO; -SYNTHROID150 MC1 PO
[2023-02-24 04:27] LABS: BASOPHILS ABSOLUTE AUTO 0.07 K/mm3 (0.00-0.23); BASOPHILS PERCENT AUTO 1 % (0-2); EOSINOPHILS PERCENT AUTO 4 % (0-6); Hematocrit 42.2 % (37.0-53.0); Hemoglobin 14.5 g/dL (13.5-17.5); IMMATURE GRAN ABSOLUTE AUTO 0.02 K/mm3 (0.00-0.10); IMMATURE GRAN PERCENT AUTO 0 % (0-1); LYMPHOCYTES ABSOLUTE AUTO 1.52 K/mm3 (0.84-5.20); LYMPHOCYTES PERCENT AUTO 27 % (21-46); MONOCYTES ABSOLUTE AUTO 0.45 K/mm3 (0.16-1.47); MONOCYTES PERCENT AUTO 8 % (4-13); Mean Corpuscular HGB 30.5 pg (26.0-34.0); Mean Corpuscular HGB Conc 34.4 g/dL (31.5-36.5); Mean Corpuscular Volume 89 fL (80-100); Mean Platelet Volume 11.2 fL (9.1-12.4); NEUTROPHILS ABSOLUTE AUTO 3.33 K/mm3 (1.96-9.15); NEUTROPHILS PERCENT AUTO 59 % (41-73); Platelet Count 127 K/mm3 (150-400); RDW Coefficient Variation 13.1 % (11.7-14.2); RDW Standard Deviation 42.5 fL (35.1-46.3); Red Blood Cell Count 4.75 M/mm3 (4.30-5.90); White Blood Cell Count 5.59 K/mm3 (4.00-11.30)
[2023-02-24 05:41] LABS: Influenza A, PCR NEGATIVE (NEGATIVE); Influenza B, PCR NEGATIVE (NEGATIVE); Resp Syncytial Virus, PCR NEGATIVE (NEGATIVE); SARS-Cov-2 (COVID-19) PCR, MMC NEGATIVE (NEGATIVE)
[2023-02-24 05:48] LABS: Alanine Aminotransfer (ALT/SGP <6 U/L (12-78); Albumin, Blood 3.6 g/dL (3.4-5.0); Albumin/Globulin Ratio 1.2 (0.8-1.8); Alk Phos 95 U/L (50-136); Anion Gap 4 mmol/L (6-16); Aspartate Aminotrans (AST/SGOT 16 U/L (12-37); Blood Urea Nitrogen 18 mg/dL (8-24); Bun/Creatinine Ratio 21.6 (12.0-20.0); CO2, Blood 26 mmol/L (21-32); Calcium, Blood 8.6 mg/dL (8.5-10.1); Chloride, Blood 111 mmol/L (98-108); Creatinine, Blood 0.84 mg/dL (0.60-1.20); Globulin, Blood 2.9 g/dL (2.2-4.0); Glomerular Filtration Rate 90 (60-); Glucose, Blood 131 mg/dL (70-99); Potassium, Blood 3.5 mmol/L (3.5-5.5); Sodium, Blood 141 mmol/L (136-145); Total Protein, Blood 6.5 g/dL (6.4-8.2)
[2023-02-24 09:50] VITALS: BP 108/72
[2023-02-24] MEDS ORDERED: ATORVASTATIN CA20 MG PO (10:25)
[2023-02-24] MEDS ORDERED: TAMSULOSIN HCL0.4 M1 PO (10:27)
--- NOTE | 2023-02-24 10:53 | NUR ---
ADMISSION ASSESSMENT: Pt arrived to room PCU 1 via gurney. Able to get up and transfer to bed with 2 person SBA. Pt denied dizziness with transfer. LS clear. HR irregular, tele shows afib. BT positive. Pt denies pain, CP or SOB at this time. VSS. BP 110s over 60's with map in the 70-80's. Pt oreinted to room, unit, call light and treatment plan. Bed alarm on. Call light in reach. Will continue to monitor.
[2023-02-24 11:32] VITALS: BP 117/94
[2023-02-24 12:22] LABS: Source, Urine Clean Catch
[2023-02-24 12:27] LABS: Appearance, Urine Clear (Clear); Blood, Urine Neg (Neg); Color, Urine Yellow (P-Yellow); Glucose Qualitative, Urine Neg (Neg); Ketones, Urine 1+ (Neg); Leukocyte Esterase, Urine 2+ (Neg); Nitrite, Urine Neg (Neg); Protein, Urine 2+ (Neg); Specific Gravity, Urine 1.025 (1.003-1.022); Urobilinogen, Urine 2+ (Normal)
[2023-02-24 12:32] LABS: Bilirubin, Urine 1+ (Neg)
[2023-02-24 12:33] LABS: Bacteria Mod /hpf; Mucus Mod (0-Heavy); Red Blood Cells, Urine Not Seen /hpf (0-2); Squamous Epithelial Cells Mod /hpf (Few)
[2023-02-24 15:28] VITALS: BP 117/83
--- NOTE | 2023-02-24 18:51 | NUR ---
SHIFT SUMMARY: Pt has done well this shift. BP has remained stable throughout the shift with MAP's in the 80-90's for most of the shift. Has denied CP, SOB, Dizziness or any other issues. States that he feels fine. Bed alarm has been on but pt has been using the call light appropriately. Denies other needs. Call light in reach. Will report to night RN. Stable at end of shift.
[2023-02-24 20:03] VITALS: BP 131/90
[2023-02-24 23:11] VITALS: BP 124/86
[2023-02-25 03:48] VITALS: BP 101/51
--- NOTE | 2023-02-25 03:57 | NUR ---
SHIFT SUMMARY PATIENT IS ALERT AND ORIENTED X4. WAKES UP SLIGHTLY CONFUSED BUT EASILY REORIENTED. 02 SATS >95% ON RA. HR A.FIB 80-100. BP STABLE, DENIES CP/PRESSURE. 1 PERSON ASSSIT WHEN UP. PATIENT USES URINAL. INDEPENDENT WITH REPOSITIONING IN BED. CALL LIGHT IN REACH
[2023-02-25 04:19] LABS: Bun/Creatinine Ratio 18.5 (12.0-20.0); Calcium, Blood 8.5 mg/dL (8.5-10.1); Creatinine, Blood 0.92 mg/dL (0.60-1.20); Potassium, Blood 3.5 mmol/L (3.5-5.5)
[2023-02-25 07:42] VITALS: BP 105/74
[2023-02-25] MEDS ORDERED: METO25ER PO (09:33)
--- NOTE | 2023-02-25 10:52 | NUR ---
SHIFT SUMMARY/DISCHARGE PT DISCHARGED @ APPROX 1040. THIS RN TOOK PT OUT TO VEHICLE IN WHEEL CHAIR. , MARILYNN, PRESENT TO TAKE PT HOME. PT BELONGINGS, CLOTHING ONLY, GIVEN BACK TO PATIENT. PT AFIB WITH A CONTROLLED RATE THIS AM. PT IS ASYMPTOMATIC. SPO2 >92% ON RA. LUNGS WERE CLEAR T/O. RESPIRATIONS WERE EVEN AND UNLABORED. PT WAS MILDLY FORGETFUL, BUT A/O X4. BP WAS STABLE. DISCHARGE INTSTRUCTIONS WERE GONE OVER WITH AND PATIENT BY THIS RN. PATIENT PRESCRIPTION WAS FAXED TO [facility] IN [place].
== END 2023-02-25 10:35 | disposition home or self-care (01) ==
LOC: ER 03:54 → PCU 03:55
PROVIDERS: Student in an Organized Health Care Education/Training Program; ADMIT Internal Medicine
DX: I95.9 Hypotension, unspecified (principal); R06.00 Dyspnea, unspecified; I11.0 Hypertensive heart disease with heart failure; I50.32 Chronic diastolic (congestive) heart failure; G20 Parkinson's disease; E11.9 Type 2 diabetes mellitus without complications; E03.9 Hypothyroidism, unspecified; K21.9 Gastro-esophageal reflux disease without esophagitis; E78.2 Mixed hyperlipidemia; Z86.16 Personal history of COVID-19; I48.91 Unspecified atrial fibrillation; N40.0 Benign prostatic hyperplasia without lower urinary tract symptoms; Z66 Do not resuscitate; Z88.8 Allergy status to other drugs, medicaments and biological substances; Z79.82 Long term (current) use of aspirin; Z79.890 Hormone replacement therapy; Z79.84 Long term (current) use of oral hypoglycemic drugs; Z79.899 Other long term (current) drug therapy
CPT/HCPCS: 0241U; 36415; 71046; 80048; 80053; 81001; 83605; 83880; 84443; 84484; 85025; 87086; 87147; 93005; 93010; 93306; 99285-25; A9270; C9113; G0378; J7030; J7060